=== PATIENT | male | born 1955 | race Caucasian/White ===

== ENCOUNTER 2021-09-18 06:47 | Observation (INO) ==
[2021-09-18 07:10] LABS: Basophils # 0.1 10*3/uL (0.0-0.2); Eosinophils # 0.2 10*3/uL (0.0-0.87); Eosinophils % 2.7 % (0.00-10.9); Hematocrit 43.7 VOL% (42.0-52.0); Hemoglobin 13.8 GM/DL (14.0-18.0); Immature Granulocytes % 0.3 %; Immature Granulocytes Absolute 0.02 #; Lymphocytes % 28.2 % (21.2-54.2); Mean Corpuscular HGB Conc 31.6 GM/DL (32-36); Mean Corpuscular Volume 89.9 FL (87-102); Mean Platelet Volume 9.5 FL (9.6-12.0); Monocytes % 8.5 % (1.7-12.7); Neutrophils % 59.3 % (38.7-73.9); Platelet Count 245 T/CUMM (130-400); Red Blood Count 4.86 MC/CUMM (3.8-5.5); Red Cell Distribution Width 13.2 % (9.3-17.3); White Blood Count 7.1 T/CUMM (4-12)
[2021-09-18 07:25] LABS: PT Patient Result 10.7 SECS (10.5-12.0)
[2021-09-18] MEDS ORDERED: SODIUM CHLORIDE 0.9% 1,000 ML IV STA (07:34)
[2021-09-18 07:42] LABS: Alanine Aminotransferase < 6 U/L (16-61); Albumin 3.2 G/DL (3.4-5.0); Alkaline Phosphatase 101 U/L (45-117); Aspartate Amino Transferase 22 U/L (0-37); Blood Urea Nitrogen 16 MG/DL (7-18); Calcium 8.3 MG/DL (8.5-10.1); Carbon Dioxide 27 MMOL/L (21-32); Estimated Glom Filtration Rate 94 ML/MIN; Glucose 84 MG/DL (74-106); Osmolality,Calculated 274.7 MOS/KG (273-304); Sodium 138 MMOL/L (136-145); Total Protein 6.5 G/DL (6.4-8.2)
[2021-09-18] MEDS ORDERED: hydrALAZINE 20 MG/1 ML VIAL IV PRN (09:59)
[2021-09-18] MEDS ORDERED: ONDANSETRON 4 MG/2 ML VIAL IV PRN (09:59)
[2021-09-18] MEDS ORDERED: ACETAMINOPHEN 325 MG TABLET PO PRN (09:59)
[2021-09-18] MEDS ORDERED: GLUCAGON 1 MG VIAL IM PRN (09:59)
[2021-09-18] MEDS ORDERED: SODIUM CHLORIDE 0.9% 1,000 ML IV SCH (10:00)
[2021-09-18] MEDS ORDERED: DEXTROSE 10% 250 ML BAG IV PRN (10:16)
[2021-09-18] MEDS: INSULIN LISPRO 100 UNIT/ML SUBCUT SCH ×3 (11:25→20:11)
[2021-09-18] MEDS: DEXTROSE 5% NACL 0.45% 1,000 ML IV SCH (12:12)
[2021-09-18 13:34] LABS: Mucus,Urine Occasional /LPF (Occasional); RBC,Urine 64 /HPF (0-4)
[2021-09-18 13:38] LABS: Bilirubin,Urine Negative (Negative); Ketones,Urine Negative (Negative); Nitrite,Urine Negative (Negative); Protein,Urine Negative (Negative); Urine Appearance Clear (Clear); Urine Color Light Yellow (Yellow); Urine Specific Gravity 1.025 (1.001-1.035); Urine pH 5.5 (4.5-8.0)
[2021-09-18 13:39] LABS: Blood, Urine Moderate mg/dL (Negative); Glucose,Urine (UA) >=1000 mg/dL (Negative); Urine Urobilinogen < 2.0 eU/dL (<2.0)
[2021-09-18 13:42] LABS: Barbiturates Screen,Urine Negative (Negative); Benzodiazepines Screen,Urine Negative (Negative); Cannabinoid Screen,Urine Negative (Negative); Opiate Screen,Urine Negative (Negative); Phencyclidine Screen,Urine Negative (Negative)
[2021-09-18] MEDS: ROSUVASTATIN 10 MG TABLET PO SCH (20:59)
[2021-09-18] MEDS ORDERED: APIXABAN 5 MG TABLET PO SCH (21:00)
[2021-09-19] MEDS: DEXTROSE 5% NACL 0.45% 1,000 ML IV SCH ×2 (01:37→15:01)
[2021-09-19 05:23] LABS: Basophils # 0.1 10*3/uL (0.0-0.2); Basophils % 0.6 % (0.0-0.8); Eosinophils # 0.1 10*3/uL (0.0-0.87); Eosinophils % 1.6 % (0.00-10.9); Hematocrit 39.4 VOL% (42.0-52.0); Hemoglobin 12.5 GM/DL (14.0-18.0); Immature Granulocytes % 0.3 %; Immature Granulocytes Absolute 0.03 #; Lymphocytes # 2.2 10*3/uL (1.4-4.0); Lymphocytes % 25.6 % (21.2-54.2); Mean Corpuscular HGB Conc 31.7 GM/DL (32-36); Mean Corpuscular Volume 90.4 FL (87-102); Mean Platelet Volume 9.8 FL (9.6-12.0); Monocytes % 8.6 % (1.7-12.7); Neutrophils % 63.3 % (38.7-73.9); Platelet Count 241 T/CUMM (130-400); Red Blood Count 4.36 MC/CUMM (3.8-5.5); Red Cell Distribution Width 13.3 % (9.3-17.3); White Blood Count 8.6 T/CUMM (4-12)
[2021-09-19 05:49] LABS: Calcium 7.7 MG/DL (8.5-10.1); Osmolality,Calculated 281.3 MOS/KG (273-304); Potassium 4.5 MMOL/L (3.5-5.1); Risk Ratio 2.92; Thyroid Stimulating Hormone 1.82 uIU/ml (0.358-3.74); VLDL Cholesterol 25.4 MG/DL
[2021-09-19] MEDS: INSULIN LISPRO 100 UNIT/ML SUBCUT SCH ×4 (09:04→21:27)
[2021-09-19] MEDS ORDERED: ASPIRIN EC 81 MG TABLET PO SCH (21:00)
[2021-09-19] MEDS: ROSUVASTATIN 10 MG TABLET PO SCH (21:22)
[2021-09-19] MEDS: CARBIDOPA/LEVODOPA 25-100 MG TABLET PO SCH (21:22)
[2021-09-20] MEDS: DEXTROSE 5% NACL 0.45% 1,000 ML IV SCH (04:21)
[2021-09-20] MEDS: CARBIDOPA/LEVODOPA 25-100 MG TABLET PO SCH (08:37)
[2021-09-20] MEDS: INSULIN LISPRO 100 UNIT/ML SUBCUT SCH ×2 (08:37→11:06)
[2021-09-20 11:33] VITALS: BP 142/72
== END 2021-09-20 11:28 | disposition home or self-care (01) ==
LOC: EDUNIT# → EDBD → N.ED 06:47 → N.EDINP 06:47 → SUATTDRO 09:59 → N.TELEN 12:00
PROVIDERS: ADMIT Phlebology; ATTEND Internal Medicine